=== PATIENT | female | born 1995 | race Caucasian/White ===

== ENCOUNTER 2017-09-14 22:41 | Emergency (ER) | payer MEDICAID ==
[2017-09-15 01:48] VITALS: BP 135/80
== END 2017-09-15 01:48 | disposition home or self-care (01) ==
LOC: ED 22:41
DX: T78.49XA Other allergy, initial encounter (principal); R09.81 Nasal congestion; J45.909 Unspecified asthma, uncomplicated; X58.XXXA Exposure to other specified factors, initial encounter
CPT/HCPCS: J1200; J7512